=== PATIENT | male | born 1995 ===

== ENCOUNTER 2019-05-22 08:58 | Emergency (ER) | payer SELFPAY ==
[2019-05-22] MEDS ORDERED: IBUPROFEN 800 MG (MOTRIN) TAB PO ONE (09:30)
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
[2019-05-22] MEDS ORDERED: IBUP-1780 PO (11:12)
[2019-05-22 11:35] VITALS: BP 124/77
== END 2019-05-22 11:36 | disposition home or self-care (01) ==
LOC: ER FS 09:00
DX: M54.2 Cervicalgia (principal); M54.5 Low back pain; M25.552 Pain in left hip; M25.551 Pain in right hip; M79.652 Pain in left thigh; V49.50XA Passenger injured in collision with unspecified motor vehicles in traffic accident, initial encounter
CPT/HCPCS: 72040; 72100; 73521; 73552; 73560